=== PATIENT | female | born 1935 | race Hispanic/Latino ===

== ENCOUNTER → 2018-10-20 | Outpatient (CLI) | payer MEDICARE ==
[~2018-10-20] MED LIST: REGADENOSON 0.4 MG/5 ML SYR IV ONE
--- NOTE | 2018-10-21 19:34 | Myoview Stress Test ---
DATE OF STUDY: 10/20/2018 07:40:00 Stress Test - Treadmill ONLY PROCEDURE PERFORMED: Lexiscan nuclear stress test. INDICATION: Chest pain. TECHNIQUE: The patient was given 10.9 mCi of Myoview. Resting images were obtained in the horizontal long axis, vertical long axis, and short axis. The patient was then hooked up to the EKG machine. Lexiscan was infused over 15 seconds, 31 mCi of Myoview were injected immediately after Lexiscan infusion. Stress images were obtained 30 minutes after completion of Lexiscan infusion. Stress images were obtained in the horizontal long axis, vertical long axis, and short axis. RESULTS: 1. The resting EKG demonstrated normal sinus rhythm with nonspecific ST and T-wave changes. 2. There were no EKG changes and no symptoms during Lexiscan infusion. 3. There was normal perfusion to all segments of the myocardium in both stress and rest. 4. There was normal left ventricular size and function with an ejection fraction of 72%. CONCLUSION: Normal Lexiscan nuclear stress test with no evidence of ischemia. There was normal left ventricular size and function with an ejection fraction of 72%. Jersey Escobar MD [facility]/MODL /[id number]
== END ==
LOC: NM 07:23
DX: R00.2 Palpitations (principal); R94.31 Abnormal electrocardiogram [ECG] [EKG]
CPT/HCPCS: 78452; 93017; A9502; J2785